=== PATIENT | female | born 1995 | race Caucasian/White ===

== ENCOUNTER 2016-06-06 10:21 | Emergency (ER) | payer OTHER ==
[~2016-06-06] VITALS: Ht 177.8 cm; Wt 75.0 kg
[~2016-06-06 10:21] MED LIST: NOHOMEMEDS
[2016-06-06 11:20] VITALS: BP 119/70
== END 2016-06-06 11:26 | disposition home or self-care (01) ==
LOC: EME 10:21
DX: S00.03XA Contusion of scalp, initial encounter (principal); V47.5XXA Car driver injured in collision with fixed or stationary object in traffic accident, initial encounter; Y92.410 Unspecified street and highway as the place of occurrence of the external cause
CPT/HCPCS: 99281; 99283